=== PATIENT | male | born 1950 | race Caucasian/White ===

== ENCOUNTER 2018-05-14 11:33 | Outpatient (CLI) | payer MEDICARE, BC ==
--- NOTE | 2018-05-14 14:07 | RAD ---
RIGHT KNEE 4 VIEWS: Date: 05/14/18 HISTORY: Knee pain. FINDINGS: There are severe arthritic changes of the knee. There is marked medial compartment narrowing. Also, t here are degenerative changes of the patellofemoral and lateral compartments. There is ossification o f the distal patellar tendon. Vascular calcifications are seen. There is an ossified body which appea rs to be within the suprapatellar joint space. IMPRESSION: Severe arthritic changes of the right knee. POS: [facility]
--- NOTE | 2018-05-14 14:08 | RAD ---
LEFT KNEE 4 VIEWS: Date: 05/14/18 HISTORY: Knee pain. FINDINGS: There are severe osteoarthritic changes of the knee. There is marked medial compartment narrowing. De generative changes of the patellofemoral and lateral compartment are also seen. No joint effusion. Va scular calcifications are noted. IMPRESSION: Severe arthritic changes of the knee. POS: [facility]
== END 2018-05-14 11:34 | disposition home or self-care (01) ==
LOC: RAD 11:33
PROVIDERS: ATTEND Family Medicine
DX: M17.0 Bilateral primary osteoarthritis of knee (principal)

== ENCOUNTER 2018-11-29 09:39 | Outpatient (CLI) | payer MEDICARE, BC ==
[2018-11-29 13:31] LABS: Bilirubin Negative (Negative); Blood, Urine Negative (Negative); Clarity CLEAR (Clear); Glucose, Urine (Dipstick) >=1000 mg/dL (Negative); Leukocyte Negative (Negative); Nitrite Negative (Negative); Protein, Urine (Dipstick) Negative (Neg-Trace)
[2018-11-29 13:32] LABS: Bacteria/HPF None Seen HPF (None Seen); Hyaline Casts/LPF 0-3 HYALINE CAST LPF (0-3 Hyaline); RBC/HPF 0-3 HPF (0-3); Squamous Epithelial 0-3 HPF (0-3); WBC/HPF None Seen HPF (0-3)
[2018-11-29 13:36] LABS: INR-International Normal Ratio 1.6; Prothrombin Time 19.4 SEC (12.0-14.7)
[2018-11-29 13:52] LABS: Anion Gap 14 mmol/L (10-20); BUN (Urea Nitrogen) 27 mg/dL (8.4-25.7); Calc. Creatinine Clearance 0 mL/min (70-130); Calcium 9.4 mg/dL (7.8-10.44); Carbon Dioxide 20 mmol/L (23-31); Chloride 104 mmol/L (98-107); Estimated GFR-MDRD 64; Glucose 154 mg/dL (80-115); Potassium 5.2 mmol/L (3.5-5.1); Sodium 133 mmol/L (136-145)
[2018-11-29 14:59] LABS: #Eosinphils 0.2 thou/uL (0.0-0.7); #Monocytes 0.9 thou/uL (0.11-0.59); #Neutrophils 7.5 thou/uL (1.40-6.50); %Basophils 0.5 % (0.0-1.0); %Eosinophils 1.8 % (0.0-10.0); %Lymphocytes 10.4 % (21.0-51.0); %Monocytes 8.9 % (0.0-10.0); %Neutrophils 78.4 % (42.0-75.0); Hemoglobin 16.1 g/dL (14.0-18.0); Large Platelets SLIGHT; MDiff Complete? YES; Mean Corpuscular Hemoglobin 27.5 pg (27.0-31.0); Mean Corpuscular Volume 88.7 fL (78.0-98.0); Mean Platelet Volume 10.1 fL (7.4-10.4); Platelet Count 208 thou/uL (130-400); Platelet Morphology Comment Appears Adequate; RBC Distribution Width 12.6 % (11.5-14.5); RBC Morphology Normal; Red Blood Cell (RBC) Count 5.85 mill/uL (4.70-6.10); White Blood Cell (WBC) Count 9.5 thou/uL (4.8-10.8)
== END 2018-11-29 09:40 | disposition home or self-care (01) ==
LOC: LABBT 09:39
PROVIDERS: ATTEND Orthopaedic Surgery
DX: Z01.818 Encounter for other preprocedural examination (principal); M17.11 Unilateral primary osteoarthritis, right knee
CPT/HCPCS: 80048; 81001; 85025; 85610; 85730; 93005; 93010

== ENCOUNTER 2018-12-11 07:27 | Inpatient (IN) | payer MEDICARE, BC ==
[2018-11-29 12:14] VITALS: BMI 36.6
[2018-12-11] MEDS ORDERED: Levofloxacin 500 mg/D5W 100 ml Premix Bag ONE (08:38)
[2018-12-11] MEDS ORDERED: Tranexamic Acid 1,000 MG/10 ML VIAL ONE (08:38)
[2018-12-11] MEDS ORDERED: Sodium Chloride 0.9% 100 ML ONE (08:38)
[2018-12-11] MEDS ORDERED: Vancomycin HCl 1.5 GM in Sodium Chloride 0.9% 250 ML 300 ML IVPB SCH (08:45)
[2018-12-11] MEDS ORDERED: Tranexamic Acid 1,000 MG in Sodium Chloride 0.9% 100 ML IVPB SCH (08:45)
[2018-12-11] MEDS ORDERED: Midazolam HCl 2 mg/2 ml Vial ONE (09:45)
[2018-12-11] MEDS ORDERED: Fentanyl 100 MCG/2 ML VIAL ONE ×3 (09:45→13:29)
[2018-12-11] MEDS ORDERED: Ropivacaine 0.2% HCl/PF (40 MG/20 ML VIAL) ONE (10:10)
[2018-12-11] MEDS ORDERED: Ropivacaine 0.5% HCl/PF (150 MG/30 ML VIAL) ONE (10:10)
[2018-12-11] MEDS ORDERED: HYDROcodone/Acetaminophen 10/325 mg Tablet PO PRN ×2 (10:29)
[2018-12-11] MEDS ORDERED: Ondansetron PF 4 MG/2 ML Vial IVP PRN ×2 (10:29→10:33)
[2018-12-11] MEDS ORDERED: Zolpidem Tartrate 5 MG TAB PO PRN ×2 (10:29→10:33)
[2018-12-11] MEDS ORDERED: Ropivacaine HCl/PF 250 ML in Premix Bag 1 BAG NERVE BLCK SCH (10:29)
[2018-12-11] MEDS ORDERED: Promethazine HCl 25 MG/ML VIAL IM PRN ×2 (10:29→10:33)
[2018-12-11] MEDS ORDERED: traMADol HCl 50 MG TAB PO PRN ×2 (10:29)
[2018-12-11] MEDS ORDERED: Fentanyl 100 MCG/2 ML VIAL IV PRN (10:31)
[2018-12-11] MEDS ORDERED: diphenhydrAMINE 25 MG CAP PO PRN (10:33)
[2018-12-11] MEDS ORDERED: Acetaminophen 325 MG TAB PO PRN (10:33)
[2018-12-11] MEDS ORDERED: Dexamethasone 20 MG/5 ML VIAL ONE (11:09)
[2018-12-11] MEDS ORDERED: Ondansetron PF 4 MG/2 ML Vial ONE (11:09)
[2018-12-11] MEDS ORDERED: PHENYLEPHRINE-NS 100 MCG/ML 10 ML SYRINGE ONE (11:09)
[2018-12-11] MEDS ORDERED: PROPOFOL 200 MG/20 ML VIAL ONE (11:09)
--- NOTE | 2018-12-11 13:32 | RAD ---
RIGHT KNEE TWO VIEWS: HISTORY: Postoperative total knee arthroplasty changes. FINDINGS/IMPRESSION: Recent total knee arthroplasty changes without periprosthetic fracture or dislocation. POS: [facility]
[2018-12-11] MEDS: Ketorolac Tromethamine 30 MG/ML VIAL IVP SCH ×2 (14:37→17:33)
[2018-12-11] MEDS: Sodium Chloride 0.9% 1,000 ML IV SCH ×2 (14:37→20:46)
[2018-12-11] MEDS: Glimepiride 2 MG TAB PO SCH (17:33)
[2018-12-11] MEDS ORDERED: Dextrose 50% Abboject 50 ML SYRINGE SLOW IVP PRN (19:05)
[2018-12-11] MEDS ORDERED: Dextrose 5% in Water 1,000 ML IV PRN (19:05)
[2018-12-11] MEDS ORDERED: HumaLOG 300 UNITS/3 ML VIAL SC PRN (19:05)
--- NOTE | 2018-12-11 19:05 | PDOC.PN ---
- Subjective Encounter Start Date: 12/11/18 Encounter Start Time: 19:00 Subjective: Consult for med mgmt. s/p R TKA with severe DJD and limited mobility. -: Hx of DM, HTN, A-fib and chronic anticoagulation. Reviewed all hx, labs, -: rads and operative reports. - Objective MAR Reviewed: Yes Vital Signs & Weight: Vital Signs (12 hours) Temp Pulse Resp BP Pulse Ox 12/11/18 16:32 98.3 F 88 18 121/90 93 L 12/11/18 14:15 97.7 F 93 20 139/83 93 L Weight Weight 255 lb I&O: 12/10/18 12/11/18 12/12/18 06:59 06:59 06:59 Intake Total 500 Output Total 150 Balance 350 Additional Labs: Accuchecks 12/11/18 12/11/18 15:13 09:50 POC Glucose 149 H 99 Laboratory Tests 09/19/18 11/29/18 11/29/18 09:47 13:05 13:05 WBC 9.5 Hgb 16.1 Hct 51.9 Plt Count 208 PT INR APTT Sodium 133 L Potassium 5.2 H Chloride 104 Carbon Dioxide 20 L BUN 27 H Creatinine 1.14 Estimated GFR (MDRD) 64 Hemoglobin A1c 7.4 H Calcium 9.4 11/29/18 13:05 WBC Hgb Hct Plt Count PT 19.4 H INR 1.6 APTT 34.0 Sodium Potassium Chloride Carbon Dioxide BUN Creatinine Estimated GFR (MDRD) Hemoglobin A1c Calcium EKG Reviewed by me: Yes (A-fib in 80's, no acute changes) Phys Exam - Physical Examination Constitutional: NAD HEENT: PERRLA, sclera anicteric, oral pharynx no lesions Neck: no nodes, no JVD, supple, full ROM Respiratory: no wheezing, no rales, no rhonchi, clear to auscultation bilateral S1, S2 Cardiovascular: no significant murmur, no rub, gallop, irregular Gastrointestinal: soft, non-tender, no distention, positive bowel sounds + R knee edema with dressings in place Musculoskeletal: pulses present Psychiatric: A&O x 3 Skin: normal turgor, cap refill <2 seconds Dx/Plan (1) Diabetes mellitus, type II, insulin dependent Code(s): E11.9 - TYPE 2 DIABETES MELLITUS WITHOUT COMPLICATIONS; Z79.4 - LEGAL SERVICE SPECIALIST (CURRENT) USE OF INSULIN Status: Chronic Comment: Resume home DM regimen including Glargine, add ISS, serial accuchecks, ADA (2) Atrial fibrillation Code(s): I48.91 - UNSPECIFIED ATRIAL FIBRILLATION Status: Chronic Comment: Rate-controlled, continue Coreg, Tambocor (3) CKD (chronic kidney disease) stage 3, GFR 30-59 ml/min Status: Chronic Comment: Avoid nephrotoxic agents and limit contrast exposure , serial creatinine (4) Chronic anticoagulation Code(s): Z79.01 - LEGAL SERVICE SPECIALIST (CURRENT) USE OF ANTICOAGULANTS Status: Chronic Comment: Resume anticoagulation post-op in accordance with Joint U protocol post knee arthroplasty (5) Status post total knee replacement, right Code(s): Z96.651 - PRESENCE OF RIGHT ARTIFICIAL KNEE JOINT Status: Acute Comment: Pain control, ASA, Joint U protocol - Plan continue antibiotics, PT/OT, social services assistant, incentive spirometry, out of bed/ ambulate, DVT proph w/SCDs Stable currently -: Add ISS, serial accuchecks -: Resume Glargine, Metformin, Alogliptin and Amaryl -: Pain control -: AM lab: CBC, BMP * Thank you for the consult, will continue to follow with primary service.
[2018-12-11] MEDS: Carvedilol 25 MG TAB PO SCH (20:27)
[2018-12-11] MEDS: Flecainide 50 MG TAB PO SCH (20:27)
[2018-12-11] MEDS: Atorvastatin Calcium 10 MG TAB PO SCH (20:36)
[2018-12-11] MEDS: Aspirin 81 mg Enteric Coated Tablet PO SCH (20:36)
[2018-12-11] MEDS: metFORMIN 850 MG TAB PO SCH (20:36)
[2018-12-11] MEDS: Insulin Glargine 48 UNITS in Pre-Filled Syringe 1 EACH SC SCH (20:50)
[2018-12-11] MEDS ORDERED: INSULIN GLARGINE HUM REC ANLOG 48 UNIT SQ SCH (21:00)
[2018-12-11] MEDS ORDERED: Prevnar 13-Val Conj/PF 0.5 ML SYRINGE IM ONE (21:00)
[2018-12-11] MEDS ORDERED: Vancomycin HCl 1 GM in Premix Bag 1 BAG IVPB SCH (21:00)
[2018-12-12] MEDS: Ketorolac Tromethamine 30 MG/ML VIAL IVP SCH ×5 (00:27→23:51)
[2018-12-12] MEDS: Sodium Chloride 0.9% 1,000 ML IV SCH ×2 (05:45→20:24)
[2018-12-12 06:31] LABS: Hemoglobin 14.1 g/dL (14.0-18.0); Mean Corpuscular HGB CONC 31.3 g/dL (32.0-36.0); Mean Corpuscular Hemoglobin 28.2 pg (27.0-31.0); Mean Corpuscular Volume 90.2 fL (78.0-98.0); Mean Platelet Volume 10.2 fL (7.4-10.4); Platelet Count 185 thou/uL (130-400); RBC Distribution Width 12.9 % (11.5-14.5); White Blood Cell (WBC) Count 12.4 thou/uL (4.8-10.8)
[2018-12-12 06:47] LABS: Anion Gap 10 mmol/L (10-20); BUN (Urea Nitrogen) 23 mg/dL (8.4-25.7); Calc. Creatinine Clearance 109 mL/min (70-130); Calcium 8.7 mg/dL (7.8-10.44); Carbon Dioxide 24 mmol/L (23-31); Chloride 104 mmol/L (98-107); Estimated GFR-MDRD 68; Glucose 94 mg/dL (80-115); Potassium 4.4 mmol/L (3.5-5.1); Sodium 134 mmol/L (136-145)
--- NOTE | 2018-12-12 08:42 | PRG ---
DATE OF SERVICE: 12/12/2018 SUBJECTIVE: Terrell is a 68-year-old white male, who is postop day 1 from right total knee arthroplasty. He was transferred to telemetry yesterday evening postoperatively due to concerned over atrial fibrillation, and he has been in a monitored bed overnight. He has done relatively well. He has no complaints of pain at this point. He is quite comfortable. He does admit that the air condition in his room is not functioning and was a little warm last night. OBJECTIVE: VITAL SIGNS: Temperature 97.8, pulse 82, respiratory rate 16 and nonlabored, blood pressure 95/58. GENERAL: He is alert and oriented to person, place, time, situation, grossly nonfocal. EXTREMITIES: His incision is clean and closed. No erythema. He is neurovascularly intact in the right lower extremity. LABORATORY DATA: Hemoglobin and hematocrit 14.1 and 45. IMPRESSION: 1. A 68-year-old white male, postoperative day 1, right total knee arthroplasty. 2. Atrial fibrillation. 3. Dilated cardiomyopathy. PLAN: Continue current care. Probable discharge tomorrow. Begin [facility] protocol. Job ID: [id number]
[2018-12-12] MEDS ORDERED: Dapagliflozin Propanediol [Farxiga] 10 MG PO SCH (09:00)
[2018-12-12] MEDS: Spironolactone 25 MG TAB PO SCH (09:45)
[2018-12-12] MEDS: Senokot S 8.6-50 MG TAB PO SCH ×2 (09:46→20:54)
[2018-12-12] MEDS: Lisinopril 20 MG TAB PO SCH (09:46)
[2018-12-12] MEDS: Ferrous Gluconate 324 MG TAB PO SCH ×2 (09:46→20:54)
[2018-12-12] MEDS: Multivitamin W/ Minerals 1 TAB PO SCH (09:47)
[2018-12-12] MEDS: Glimepiride 2 MG TAB PO SCH ×2 (09:47→16:56)
[2018-12-12] MEDS: Alogliptin 25 MG TAB PO SCH (09:47)
[2018-12-12] MEDS: Carvedilol 25 MG TAB PO SCH ×2 (09:47→20:55)
[2018-12-12] MEDS: metFORMIN 850 MG TAB PO SCH ×2 (09:47→20:55)
[2018-12-12] MEDS: Aspirin 81 mg Enteric Coated Tablet PO SCH (09:47)
[2018-12-12] MEDS: Flecainide 50 MG TAB PO SCH ×2 (09:47→20:53)
--- NOTE | 2018-12-12 09:48 | OP ---
DATE OF PROCEDURE: 12/11/2018 PREOPERATIVE DIAGNOSIS: Degenerative joint disease, right knee. POSTOPERATIVE DIAGNOSIS: Degenerative joint disease, right knee. PROCEDURE PERFORMED: Right total knee arthroplasty using Qi triathlon 5 femur, 6 tibia, 9 mm CS X3 polyethylene, A35 patella. AUTOMOTIVE PARTS COUNTER PERSON: Cuong. BLOOD LOSS: Minimal. SPECIMEN: None. DRAINS: None. COMPLICATION: None. TOURNIQUET TIME: 52 minutes. PROCEDURE IN DETAIL: After informed consent was obtained in the preoperative holding area, the patient was taken to the operative suite where general anesthesia was induced. Once adequate level of general anesthesia was obtained, the patient was positioned and a well-padded tourniquet was placed around the right proximal thigh. The right lower extremity was then prepped and draped in the usual sterile fashion. Prior to exsanguination, a time-out was called and all members of the surgical team agreed upon site, surgeon, and patient. The extremity was then exsanguinated and the tourniquet was raised. A midline longitudinal incision was then made directly over the patella extending 2 fingerbreadths above the superior pole of the patella and 2 fingerbreadths inferior to the inferior patellar pole of the patella. Deeper subcutaneous layers were dissected sharply and local bleeding was controlled with Bovie electrocautery. A quad tendon longitudinal split was then made sharply and a median parapatellar arthrotomy was carried out both sharp and with Bovie electrocautery, carried down to 1 fingerbreadth medial to the tibial tubercle. The knee was then placed into flexion and the patella was everted nicely, and a copious fat pad ectomy was performed allowing for greater exposure of the tibia. The computer-assisted distal femoral fiducial was then placed and pinned firmly, and the distal femoral cutting guide was pinned firmly into place. The oscillating saw was then used to remove the appropriate amount of bone. The 4-in-1 cutting block was then placed on the distal femur and the oscillating saw was used to remove the appropriate amount of bone off the anterior, posterior, and chamfer cuts. After completion of bone cuts, the anterior cruciate ligament was resected sharply and the posterior cruciate ligament retractor was placed and the tibia was subluxed for better exposure. Partial meniscectomies were carried out, and the tibial computer-assisted fiducial was pinned, and the cutting guide was placed. Oscillating saw was then used to remove the bone, with Hohmann retractors used to take care and protect the collateral ligaments. After the tibial resection was performed, a laminar slubber frame changer was placed in between the freshened bone cuts. The knee placed at 90 degrees and further bilateral meniscectomies were carried out, and the curved osteotome and curettage were used to remove any excess bone spurs in the posterior compartment. The trial femoral component, tibial baseplate were placed with the appropriate polyethylene trial insert with an appropriate polyethylene spacer and patellar button. The knee was taken through full range of motion with flexion and extension from 0 to 90 degrees and patellar broach squarely in the trochlea without any squinting or subluxation noted. The knee was also stable to varus and valgus stressing at 0, 15, 45, and 90 degrees of flexion. The drawer was negative. All trial components were then removed and the keel punch was used to provide the appropriate defect in the tibia with a mallet. The freshened bone cuts were copiously irrigated with pulsatile lavage of about 1.5 L to remove all excess debris. The freshened bone cuts were then dried with suction and lap sponge. The knee was placed in flexion and retractors were placed to provide access to all bone cuts. Tobramycin-impregnated methyl methacrylate cement was then placed on the freshened bone cuts and implants which were malleted firmly into place. Curettage and [place] elevators were used to remove any excess bone cement. The knee was placed into full extension and the patellar button was placed under compression, and the cement was allowed to cure. Once completed, the components were again taken through full range of motion and copious irrigation of the knee was carried out with another liter of normal saline. All components were inspected fully with full range of motion and varus and valgus stressing. There was no laxity noted and full extension was observed clinically. Primary closure was accomplished with #2 interrupted Vicryl stitch of the arthrotomy defect. This was oversewn with a #2 running Quill barbed stitch. The gravitational platelet system was then injected into the arthrotomy prior to closure. The subcutaneous layer was then closed with a running 0 barbed Monocryl stitch and skin closure accomplished with a running subcuticular 3-0 Monocryl barbed Quill stitch and augmented with cement on the skin. Tourniquet was lowered. Good spontaneous return of distal pulses was noted clinically and a sterile dressing was applied to the incision. The procedure was terminated without any complications. The patient was awakened in the operative suite and the was removed, and the patient was taken to the recovery room in stable condition. Job ID: [id number]
[2018-12-12] MEDS: HumaLOG 300 UNITS/3 ML VIAL SC PRN ×2 (09:59→13:33)
--- NOTE | 2018-12-12 15:41 | PDOC.PN ---
- Subjective Encounter Start Date: 12/12/18 Encounter Start Time: 15:35 Subjective: f/u for DM, A-fib, HTN and s/p R TKA POD #1. Feels ok overall. -: Some pain with movement. No fever. Apparently transferred to -: tele for mild tachycardia last pm. - Objective MAR Reviewed: Yes Vital Signs & Weight: Vital Signs (12 hours) Temp Pulse Resp BP BP Pulse Ox 12/12/18 09:46 135/79 12/12/18 08:00 97.8 F 78 18 135/79 95 Weight Admit Weight 255 lb Weight 255 lb I&O: 12/11/18 12/12/18 12/13/18 06:59 06:59 06:59 Intake Total 1040 Output Total 750 Balance 290 Result Diagrams: 12/12/18 05:12 12/12/18 05:12 Additional Labs: Accuchecks 12/12/18 12/12/18 12/11/18 11:03 06:41 20:47 POC Glucose 169 H 213 H 307 H Laboratory Tests 09/19/18 11/29/18 11/29/18 09:47 13:05 13:05 WBC 9.5 Hgb 16.1 Hct 51.9 Plt Count 208 PT INR APTT Sodium 133 L Potassium 5.2 H Chloride 104 Carbon Dioxide 20 L BUN 27 H Creatinine 1.14 Estimated GFR (MDRD) 64 Hemoglobin A1c 7.4 H Calcium 9.4 11/29/18 13:05 WBC Hgb Hct Plt Count PT 19.4 H INR 1.6 APTT 34.0 Sodium Potassium Chloride Carbon Dioxide BUN Creatinine Estimated GFR (MDRD) Hemoglobin A1c Calcium EKG Reviewed by me: Yes (Tele - A-fib in 70's) Phys Exam - Physical Examination Constitutional: NAD HEENT: PERRLA, sclera anicteric, oral pharynx no lesions Neck: no nodes, no JVD, supple, full ROM Respiratory: no wheezing, no rales, no rhonchi, clear to auscultation bilateral S1, S2 Cardiovascular: RRR, no significant murmur, no rub, gallop Gastrointestinal: soft, non-tender, no distention, positive bowel sounds R knee edema and dressing Musculoskeletal: pulses present Neurological: normal sensation, moves all 4 limbs Psychiatric: A&O x 3 Skin: normal turgor, cap refill <2 seconds Dx/Plan (1) Diabetes mellitus, type II, insulin dependent Code(s): E11.9 - TYPE 2 DIABETES MELLITUS WITHOUT COMPLICATIONS; Z79.4 - ALF (CURRENT) USE OF INSULIN Status: Chronic Comment: Resume home DM regimen including Glargine, add ISS, serial accuchecks, ADA (2) Atrial fibrillation Code(s): I48.91 - UNSPECIFIED ATRIAL FIBRILLATION Status: Chronic Comment: Rate-controlled, continue Coreg, Tambocor, rate controlled and will be resuming Xarelto, stable (3) CKD (chronic kidney disease) stage 3, GFR 30-59 ml/min Status: Chronic Comment: Avoid nephrotoxic agents and limit contrast exposure , serial creatinine (4) Chronic anticoagulation Code(s): Z79.01 - FABRIC DESIGNER (CURRENT) USE OF ANTICOAGULANTS Status: Chronic Comment: Resume anticoagulation with Xarelto (5) Status post total knee replacement, right Code(s): Z96.651 - PRESENCE OF RIGHT ARTIFICIAL KNEE JOINT Status: Acute Comment: Pain control, ASA, Joint U protocol - Plan continue antibiotics, PT/OT, social media content manager, out of bed/ambulate, DVT proph w/ SCDs Stable currently -: Continue routine rate-control measures with Tambocor, Coreg -: Resume home Xarelto -: OOB with PT per protocol -: ISS, home DM regimen * AM lab: CBC * Stable currently
--- NOTE | 2018-12-12 17:25 | CON ---
DATE OF CONSULTATION: HISTORY OF PRESENT ILLNESS: Terrell Neal, 68-year-old gentleman with chronic atrial fibrillation, who underwent knee surgery. The patient has a history of nonischemic cardiomyopathy.Several years ago, he underwent a cardiac catheterization. He was found to have a severe decrease of left ventricular systolic function with normal coronary arteries. The patient has been on medical therapy. He has been followed primarily by Dr. Coates. The patient recently underwent knee surgery. Prior to surgery, he was taken off his Xarelto for a week. The patient denies having any palpitations. He denies having any chest discomfort. PAST MEDICAL HISTORY: 1. Cardiomyopathy. 2. Diabetes mellitus. 3. Hypertension. 4. Dyslipidemia. PAST SURGICAL HISTORY: Appendectomy and knee surgery. SOCIAL HISTORY: Nonsmoker and denies excessive alcohol use. ALLERGIES: PENICILLIN. MEDICATION: 1. Amaryl 2 b.i.d. 2. Xarelto 20 at bedtime. 3. Farxiga 10 a day. 4. Flecainide 50 b.i.d. 5. Spironolactone 50 daily. 6. Januvia 100 daily. 7. Nexium 40 daily. 8. Coreg 25 b.i.d. 9. Pravastatin 40 daily. 10. Lisinopril 40 daily. 11. Insulin. REVIEW OF SYSTEMS: Ten-point system otherwise unremarkable. No history of easy bruising or bleeding, bright red blood per rectum. PHYSICAL EXAMINATION: GENERAL: Obese gentleman, no acute distress. VITAL SIGNS: Blood pressure 135/79. NECK: No jugular venous distention. LUNGS: Clear to auscultation. HEART: Irregular rate and rhythm. Normal S1 and S2. ABDOMEN: Distended. EXTREMITIES: Showed mild bilateral edema. Vascular radial pulses 2+. LABORATORY DATA: Sodium 134, potassium 4.4, chloride 104, bicarbonate 24, BUN 23, creatinine 1.08. White blood cell count 12.4, hemoglobin 14.1, hematocrit 45.1. IMAGING STUDIES: His EKG reveals atrial fibrillation with a rapid ventricular response, Q-wave suggestive of a previous anterior and inferior infarct. IMPRESSION: 1. Atrial fibrillation. 2. Cardiomyopathy. 3. Diabetes mellitus. 4. Hypertension. 5. Dyslipidemia. 6. Obesity. 7. Status post knee surgery. This gentleman is status post knee surgery. He has been off Xarelto for over a week. He should be restarted on this medication as soon as possible. He is at risk of a thromboembolism being off Xarelto for an extended period of time. We will discuss with Orthopedic Surgery. We will follow this patient with you through his hospitalization. Job ID: [id number] MTDD
--- NOTE | 2018-12-12 17:50 | EKG ---
Test Reason : Blood Pressure : / mmHG Vent. Rate : 118 BPM Atrial Rate : 096 BPM P-R Int : 000 ms QRS Dur : 102 ms QT Int : 344 ms P-R-T Axes : 000 -54 101 degrees QTc Int : 482 ms Atrial fibrillation with rapid ventricular response Left axis deviation Inferior infarct , age undetermined Anterior infarct (cited on or before 18-SEP-2014) Abnormal ECG When compared with ECG of 29-NOV-2018 13:01, (Unconfirmed) Inferior infarct is now Present Confirmed by DR. Saul NYE ([id number]) on 12/12/2018 5:49:43 PM Referred By: JAY Confirmed By:DR. Saul NYE
[2018-12-12] MEDS ORDERED: Rivaroxaban 10 MG TAB PO SCH (18:00)
[2018-12-12] MEDS: Atorvastatin Calcium 10 MG TAB PO SCH (20:55)
[2018-12-12] MEDS: Insulin Glargine 48 UNITS in Pre-Filled Syringe 1 EACH SC SCH (21:10)
[2018-12-13] MEDS: Sodium Chloride 0.9% 1,000 ML IV SCH (02:23)
[2018-12-13] MEDS: Ketorolac Tromethamine 30 MG/ML VIAL IVP SCH (05:27)
[2018-12-13 05:40] LABS: Hemoglobin 13.3 g/dL (14.0-18.0); Mean Corpuscular HGB CONC 32.8 g/dL (32.0-36.0); Mean Corpuscular Hemoglobin 29.7 pg (27.0-31.0); Mean Corpuscular Volume 90.7 fL (78.0-98.0); Mean Platelet Volume 10.2 fL (7.4-10.4); Platelet Count 163 thou/uL (130-400); RBC Distribution Width 13.3 % (11.5-14.5); Red Blood Cell (RBC) Count 4.48 mill/uL (4.70-6.10)
--- NOTE | 2018-12-13 08:18 | PRG ---
DATE OF SERVICE: 12/13/2018 SUBJECTIVE: Terrell is a 68-year-old white male, who is postop day 2 from a right total knee arthroplasty. The patient ambulated approximately 140 feet yesterday evening, standby assist and is independent from a chair to standing. I spoke with Dr. Chowdhury yesterday evening and his anticoagulation therapy will be restarted immediately. OBJECTIVE: VITAL SIGNS: Temperature 98, pulse 98, respiratory rate 16 and nonlabored, O2 saturation is 94% on room air, and blood pressure is 107/65. GENERAL: He is alert and oriented to person, place, time, and situation, grossly nonfocal, responsive and appropriate with examiner. EXTREMITIES: Incision is clean without any erythema. No strike through. He is neurovascularly intact in the right lower extremity. IMPRESSION: 1. A 68-year-old male, postoperative day 2, right total knee arthroplasty. 2. History of deep vein thrombosis. 3. Hypertension. PLAN: Restart his Xarelto. Continue to follow. He may stay 1 more night, but consider discharge today, if he is doing okay. Job ID: [id number]
[2018-12-13] MEDS: Lisinopril 20 MG TAB PO SCH (08:57)
[2018-12-13] MEDS: Spironolactone 25 MG TAB PO SCH (08:57)
[2018-12-13] MEDS: Ferrous Gluconate 324 MG TAB PO SCH (08:57)
[2018-12-13] MEDS: Flecainide 50 MG TAB PO SCH (08:58)
[2018-12-13] MEDS: Multivitamin W/ Minerals 1 TAB PO SCH (08:58)
[2018-12-13] MEDS: metFORMIN 850 MG TAB PO SCH (08:58)
[2018-12-13] MEDS: Carvedilol 25 MG TAB PO SCH (08:58)
[2018-12-13] MEDS: Glimepiride 2 MG TAB PO SCH (08:58)
[2018-12-13] MEDS: Senokot S 8.6-50 MG TAB PO SCH (08:58)
[2018-12-13] MEDS: Alogliptin 25 MG TAB PO SCH (08:58)
[2018-12-13 11:21] VITALS: BP 109/69; TEMP 98.1
[2018-12-13] MEDS ORDERED: Rivaroxaban 10 MG TAB PO SCH (18:00)
== END 2018-12-13 14:20 | disposition home or self-care (01) | DRG 470 ==
LOC: SDC 07:27 → SJJU 10:33 → 2NO 22:37 → SDC 23:37 → 2NO 12-12
PROVIDERS: ADMIT Orthopaedic Surgery; ATTEND Orthopaedic Surgery
PROC: 0SRC0J9 Replacement of Right Knee Joint with Synthetic Substitute, Cemented, Open Approach (ICD-10-PCS; principal; 2018-12-12)
DX: M17.11 Unilateral primary osteoarthritis, right knee (principal); I42.0 Dilated cardiomyopathy; E11.9 Type 2 diabetes mellitus without complications; I48.91 Unspecified atrial fibrillation; N18.3 Chronic kidney disease, stage 3 (moderate); I12.9 Hypertensive chronic kidney disease with stage 1 through stage 4 chronic kidney disease, or unspecified chronic kidney disease; E78.5 Hyperlipidemia, unspecified; E66.9 Obesity, unspecified; Z68.36 Body mass index [BMI] 36.0-36.9, adult; Z79.899 Other long term (current) drug therapy; Z79.4 Long term (current) use of insulin; Z90.49 Acquired absence of other specified parts of digestive tract
CPT/HCPCS: 36415; 36416; 80048; 85027; 86850; 86900; 86901; 93005; 93010; C1713; C1776; J1100; J1825; J1885; J1956; J2250; J2405; J2704; J2795; J3010; J3370; J3490; J7050